=== PATIENT | female | born 1950 | race African-American/Black ===

== ENCOUNTER → 2018-07-13 | Day surgery (SDC) | payer OTHER, BC ==
[2018-07-07 18:23] VITALS: BMI 21.2
[~2018-07-13] MED LIST: BUPIVACAINE HCL/PF 0.25% (2.5MG/ML) 10 ML VIAL IJ ONE; BUPIVACAINE HCL/PF 2.5 MG/ML - 30 ML VIAL IJ ONE; DEXAMETHASONE SOD PHOSPHATE 4 MG/1 ML VIAL ONE; DEXAMETHASONE SOD PHOSPHATE/PF 10 MG/ML SDV ONE; GELATIN SPONGE,ABSORBABLE 1 GM PACKET TP ONE; LACTATED RINGERS SOLUTION 1,000 ML IV SCH; LIDOCAINE 1%/EPI 1:100000 (20 ML MULTI DOSE VIAL) IJ ONE; LIDOCAINE 1%/EPI 1:100000 (20 ML MULTI DOSE VIAL) ONE; MIDAZOLAM HCL 2 MG/2 ML SINGLE DOSE VIAL ONE; ONDANSETRON 4 MG/2 ML VIAL IVPUSH PRN; ONDANSETRON 4 MG/2 ML VIAL ONE; ROPIVACAINE HCL 0.5% 30ML VIAL ONE; THROMBIN (BOVINE) 5,000 UNIT VIAL TP ONE; THROMBIN (RECOMBINANT) 5,000 UNIT VIAL TP ONE; ceFAZolin SODIUM 1 GM VIAL ONE; diphenhydrAMINE HCL 12.5 MG/5 ML UNIT-DOSE CUPS PO ONE; diphenhydrAMINE HCL 25 MG CAPSULE (FP) PO ONE; ePHEDrine SULFATE 50 MG/1 ML AMPULE ONE; methylPREDNISolone ACET (DEPO) 40 MG/1 ML VIAL NR ONE; methylPREDNISolone ACET (DEPO) 40 MG/1 ML VIAL ONE; oxyCODONE HCL 5 MG TABLET PO PRN
--- NOTE | 2018-07-13 10:59 | HP ---
History & Physical Update - History History: No Change - Physical Physical: No Change - Assessment Assessment: No Change - Plan Plan: No Change
--- NOTE | 2018-07-13 12:49 | OP ---
Operative Note - Note: Operative Date: 07/13/18 Pre-Operative Diagnosis: lumbar stenosis Operation: L4-L5 Laminectomy Post-Operative Diagnosis: Same as Pre-op Surgeon: Barry Arceo Plastic Straightening Roll Operator: Fallon Yuan Anesthesiologist/SHIPYARD LABORER: Josephine Kumar Anesthesia: Spinal, Local (block) Estimated Blood Loss (mls): 20 Fluid Volume Replaced (mls): 600 Operative Report Dictated: Yes
--- NOTE | 2018-07-13 12:50 | SURG ---
Surgery Automotive Glass Mechanic Note Automotive Glass Mechanic: Fallon Yuan PA-C Date of Service: 07/13/18 Diagnosis: lumbar stenosis Procedure: L4-L5 Laminectomy I was present for the entirety of the operative procedure. For further detail, please refer to operative report. Visit type - Case Type Case Type: Scheduled - Emergency Emergency Visit: No - New patient This patient is new to me today: Yes Date on this admission: 07/13/18
[2018-07-13 14:03] VITALS: PULSE 60; TEMP 97.8
[2018-07-13 15:53] VITALS: BP 103/63
--- NOTE | 2018-07-14 11:24 | OP ---
DATE OF OPERATION: 07/13/2018 PREOPERATIVE DIAGNOSIS: Spinal stenosis, L4-5. POSTOPERATIVE DIAGNOSIS: Spinal stenosis, L4-5. PROCEDURE PERFORMED: Removal extradural cyst. SURGEON: Barry Arceo MD WAREHOUSE ORDER PULLER: PRASHANT Tracy ESTIMATED BLOOD LOSS: 50 mL. INTRAVENOUS FLUIDS: Per Anesthesia. ANESTHESIA: Spinal/TLIP. COMPLICATIONS: There were none. DISPOSITION: Patient brought to the PACU in stable condition. INDICATION FOR SURGERY: Patient is a 67-year-old female who has been suffering from pain from her back down her leg. X-rays and MRI were completed which showed that she had spinal stenosis at L4-5. She had gone through an exhaustive course of treatment which included medications, physical therapy, as well as injections. Unfortunately, the pain continued to persist despite all this. At this point, risks, benefits, and alternatives are discussed, and the patient consented to surgery. DESCRIPTION OF PROCEDURE: Patient was brought to the operating room by the Anesthesia staff after appropriate patient identification was performed. Spinal anesthesia was given. TLIP block was given. Patient was able to position herself prone onto the Jay Frame with all areas of bony prominences well padded. At this time 2 needles were placed in the back to mukul off the L4-5 segment. X-ray was taken to confirm this was correct. Needle was removed, and 10 mL of lidocaine with epinephrine was injected into the back. Her back was prepped and draped in a sterile manner. At this point, a timeout was completed, and incision was made from the top of L4 down to the bottom of L5. Dissection was carried down to the fascia. The fascia was then split open at this time and appropriate retractors were placed in. A spinal needle was placed onto the L4 lamina to mukul off the L4-5 level. An x-ray was taken to confirm this was correct. Needle was removed. The intraspinal segment of L4-5 was removed. Portion of the L4 and L5 lamina were removed. Flavum was identified and was removed. Decompression was performed. On decompression, a cyst was noted and was removed at this time. By the end of the procedure, the L5 nerve roots appeared to be well decompressed on both sides. Steroids were placed over the nerve root. FloSeal was placed over that. The fascia was closed with a number 1 Vicryl suture. Subcutaneous tissue was closed with 2-0 Vicryl sutures. Skin was closed with 3-0 Monocryl suture. Dermabond was applied. Steri-Strips were applied. Sterile dressing was applied. Patient was placed supine on the OR bed and brought to the PACU in stable condition. Haley [id number]
--- NOTE | 2018-07-14 14:09 | PATH ---
Surgical Pathology Report Patient Name: RASHMI ANDUJAR [facility] [place]. Rec. #: [id number] /Age/Gender: 1950 (Age: 67) / F Account: [id number] Location: [facility] AMBULATORY Taken: 07/13/2018 Received: 07/13/2018 Reported: 07/14/2018 Physicians: Barry Arceo M.D. Specimen(s) Received L4-5 DISC Clinical History Spinal stenosis Final Diagnosis L4-L5 DISC, LAMINECTOMY: FIBROCARTILAGINOUS TISSUE WITH DEGENERATIVE CHANGE. Electronically Signed David Roca M.D. Gross Description Received in formalin labeled "L4-L5 disc," is a 1.5 x 1.2 x 0.3 cm aggregate of hill fragments of fibrocartilaginous tissue. The specimen is entirely submitted in one cassette. /07/13/2018 saudi/07/13/2018
== END | disposition home or self-care (01) ==
LOC: FASU 07:40
PROVIDERS: ATTEND Orthopaedic Surgery Orthopaedic Surgery of the Spine
PROC: 0WBL0ZZ Excision of Lower Back, Open Approach (ICD-10-PCS; 2018-07-13)
PROC: 01NB0ZZ Release Lumbar Nerve, Open Approach (ICD-10-PCS; principal; 2018-07-13 10:00)
DX: M48.061 Spinal stenosis, lumbar region without neurogenic claudication (principal); G96.19 Other disorders of meninges, not elsewhere classified
CPT/HCPCS: 72100-TC-FY; 76000-TC-FY; 88304-TC; 94760